=== PATIENT | female | born 1965 ===

== ENCOUNTER 2023-01-03 05:50 | Day surgery (SDC) | payer OTHER ==
[~2023-01-03] VITALS: Ht 160 cm; Wt 66.2 kg
[~2023-01-03 05:50] MED LIST: CRESTOR5 MG PO; MINOCYCLINE HCL50 M1 PO
== END 2023-01-03 15:35 | disposition home or self-care (01) ==
LOC: CIR.AMB 05:50
PROVIDERS: ATTEND Surgery
DX: D44.0 Neoplasm of uncertain behavior of thyroid gland (principal); E04.1 Nontoxic single thyroid nodule; Z20.822 Contact with and (suspected) exposure to COVID-19